=== PATIENT | male | born 2000 | race Caucasian/White ===

== ENCOUNTER 2018-05-04 13:52 | Emergency (ER) | payer OTHER ==
[~2018-05-04] VITALS: Ht 180.3 cm; Wt 81.8 kg
[2018-05-04 13:55] VITALS: TEMP 98.6
[2018-05-04] MEDS ORDERED: CEPHALEXIN500 M1 PO (16:25)
[2018-05-04 16:36] VITALS: BP 140/82; PULSE 78
== END 2018-05-04 16:39 | disposition home or self-care (01) ==
LOC: COL.ER 13:52
DX: S01.511A Laceration without foreign body of lip, initial encounter (principal); Y04.0XXA Assault by unarmed brawl or fight, initial encounter; Y92.410 Unspecified street and highway as the place of occurrence of the external cause